=== PATIENT | female | born 1945 | race African-American/Black ===

== ENCOUNTER 2018-11-13 14:51 | Inpatient (IN) | payer MEDICARE, MEDICAID ==
[2018-11-13] MEDS ORDERED: LIDOCAINE 1%/EPINEPHRINE INJ 20 ML VIAL INJ ONE (15:45)
--- NOTE | 2018-11-13 15:49 | ER Document Report ---
ED Fall - General Chief Complaint: Fall Injury Stated Complaint: FALL Time Seen by Provider: 11/13/18 15:23 Primary Care Provider: SAMIA SILVERIO MD [NO LOCAL MD] - Follow up as needed Information source: Patient, Relative Notes: Patient presents today after getting her shoe caught on a rug at [employer] and falling injuring her face on pavement. There was no loss of consciousness no nausea or vomiting. Patient with laceration to upper lip and inside her mouth. Patient with significant swelling to the lower lip. Patient states that she has felt weak for some time and did fall 5 days ago at home. Patient states she feels like her extremities do not want to move properly. Patient does have a history of hypertension and hypothyroidism. Patient has not been on any medications since her primary doctor had stopped practicing. Patient has not been on medications for almost a year. Patient denies any chest pain shortness of breath or headache at this time. TRAVEL OUTSIDE OF THE [place] IN LAST 30 DAYS: No - HPI Occurred: Just prior to arrival Where: Public place Context: Tripped Associated symptoms: None Location of injury/pain: Face Quality of pain: Achy Pain Level: 2 - Related data Allergies/Adverse Reactions: No Known Allergies Allergy (Verified 11/13/18 14:55) Past Medical History - General Information source: Patient, Relative - Social History Smoking Status: Never Smoker Chew tobacco use (# tins/day): No Frequency of alcohol use: None Drug Abuse: None Lives with: Family Family History: Reviewed & Not Pertinent Patient has suicidal ideation: No Patient has homicidal ideation: No - Past Medical History Cardiac Medical History: Reports: Hx Hypercholesterolemia, Hx Hypertension Endocrine Medical History: Reports: Hx Hypothyroidism Past Surgical History: Reports: Hx Appendectomy, Hx Section, Hx Hysterectomy Review of Systems - Review of Systems Constitutional: Weakness EENT: Other - mouth injury Cardiovascular: No symptoms reported. denies: Chest pain, Dizziness Respiratory: No symptoms reported. denies: Cough, Short of breath Gastrointestinal: No symptoms reported - Arm. denies: Abdominal pain, Nausea, Vomiting Genitourinary: No symptoms reported Female Genitourinary: No symptoms reported Musculoskeletal: Joint pain - left hand. denies: Back pain Skin: Other - lac to lip and inside mouth Hematologic/Lymphatic: No symptoms reported Neurological/Psychological: Weakness, Gait changes. denies: Lost consciousness Physical Exam - Vital signs Vitals: Temp Pulse Resp BP Pulse Ox 97.5 F 110 H 15 186/100 H 95 11/13/18 15:01 11/13/18 15:01 11/13/18 15:01 11/13/18 15:01 11/13/18 15:01 - General General appearance: Appears well, Alert In distress: None - HEENT Head: Ecchymosis - lower lip, Tenderness - mouth. No: Abrasions, [place]'s eyes Eyes: Normal Conjunctiva: Normal Extraocular movements intact: Yes Eyelashes: Normal Pupils: PERRL Ears: Normal External canal: Normal Tympanic membrane: Normal. No: Hemotympanum Nasal: Normal. No: Septal hematoma Mouth/Lips: Laceration - 1 cm laceration to the area just superior of right side of upper lip, Other - Irregular laceration to inside oral cavity near the upper frenulum Swelling, contusion left side of lower lip Mucous membranes: Normal Neck: Normal, Supple, Other - No cervical midline tenderness step-off or deformity. No: Lymphadenopathy - Respiratory Respiratory status: No respiratory distress Chest status: Nontender Breath sounds: Normal. No: Rales, Rhonchi, Stridor, Wheezing Chest palpation: Normal. No: Tender, Ecchymosis - Cardiovascular Rhythm: Tachycardia Heart sounds: S1 appreciated, S2 appreciated Murmur: No - Abdominal Inspection: Normal Distension: No distension Bowel sounds: Normal Tenderness: Nontender Organomegaly: No organomegaly - Back Back: Normal, Nontender. No: Deformity/step-off, Vertebra tenderness - Extremities General upper extremity: Normal strength General lower extremity: Normal inspection, Normal strength Shoulder: Normal, Nontender Arm: Normal, Nontender Elbow: Normal, Nontender Forearm: Normal, Nontender Wrist: Normal, Nontender Hand: Tender - left hand tenderness Hip: Normal, Nontender Thigh: Normal, Nontender Knee: Normal, Nontender Calf: Normal, Nontender Ankle: Normal, Nontender Foot: Normal, Nontender - Neurological Neuro grossly intact: Yes Cognition: Normal [place]on Coma Scale Eye Opening: Spontaneous Jensen Coma Scale Verbal: Oriented [place]on Coma Scale Motor: Obeys Commands Weston Coma Scale Total: 15 - Psychological Associated symptoms: Normal affect, Normal mood - Skin Skin Temperature: Warm Skin Moisture: Dry Skin Color: Normal Skin irregularity: Laceration - 1 cm lac to area superior of right side of upper lip Course - Re-evaluation Re-evalutation: 11/13/18 18:[address] Mercedes regarding patient presentation and diagnostic evaluation. Recommends consultation with hospitalist for admission. Spoke with Dr. Torres who is not taking any additional admissions at this time on the day shift. Dr. Torres graciously gave recommendations regarding treatment of patient's hypothyroidism at this time. Agrees with plan for admission and recom mends treatment with 175 or 200 mcg of levothyroxine 2 hours ago at this time. 11/13/18 19:41 Called and spoke with Dr. Stone to give report on patient that he has graciously accepted for admission. - Vital Signs Vital signs: Temp Pulse Resp BP Pulse Ox 97.5 F 110 H 15 186/100 H 99 11/13/18 15:01 11/13/18 15:01 11/13/18 15:01 11/13/18 15:01 11/13/18 15:43 - Laboratory Result Diagrams: 11/13/18 16:40 11/13/18 16:40 Laboratory results interpreted by me: 11/13/18 11/13/18 11/13/18 16:40 16:40 16:40 Hgb 10.4 L Hct 30.5 L RDW 17.2 H Potassium 3.2 L Chloride 97 L Carbon Dioxide 33 H Creatinine 1.52 H Est GFR ( Amer) 40 L Est GFR (MDRD) Non-Af 33 L AST 59 H TSH 56.90 H Free T4 0.07 L Free T3 pg/mL 0.66 L Labs- Entire Visit 11/13/18 11/13/18 11/13/18 16:40 16:40 16:40 WBC 5.0 RBC 3.77 Hgb 10.4 L Hct 30.5 L MCV 81 MCH 27.7 MCHC 34.1 RDW 17.2 H Plt Count 211 Lymph % (Auto) 32.0 [place] % (Auto) 5.6 Eos % (Auto) 0.3 Baso % (Auto) 0.9 Reticulocyte # Absolute Neuts (auto) 3.1 Absolute Lymphs (auto) 1.6 Absolute Monos (auto) 0.3 Absolute Eos (auto) 0.0 Absolute Basos (auto) 0.0 Seg Neutrophils % 61.2 Retic Count (auto) Sodium 139.2 Potassium 3.2 L Chloride 97 L Carbon Dioxide 33 H Anion Gap 9 BUN 20 Creatinine 1.52 H Est GFR ( Amer) 40 L Est GFR (MDRD) Non-Af 33 L Glucose 89 Calcium 9.6 Magnesium Total Bilirubin 0.6 Direct Bilirubin 0.2 Neonat Total Bilirubin Not Reportable Neonat Direct Bilirubin Not Reportable Neonat Indirect Bili Not Reportable AST 59 H ALT 24 Alkaline Phosphatase 51 Troponin I 0.028 Total Protein 8.0 Albumin 4.6 TSH Free T4 Free T3 pg/mL Urine Color Urine Appearance Urine pH Ur Specific [place] Urine Protein Urine Glucose (UA) Urine Ketones Urine Blood Urine Nitrite Urine Bilirubin Urine Urobilinogen Ur Leukocyte Esterase Urine WBC (Auto) Urine RBC (Auto) Urine Bacteria (Auto) Squamous Epi Cells Auto Urine Ascorbic Acid 11/13/18 11/13/18 11/13/18 16:40 16:40 16:40 WBC RBC Hgb Hct MCV MCH MCHC RDW Plt Count Lymph % (Auto) [place] % (Auto) Eos % (Auto) Baso % (Auto) Reticulocyte # 0.034 Absolute Neuts (auto) Absolute Lymphs (auto) Absolute Monos (auto) Absolute Eos (auto) Absolute Basos (auto) Seg Neutrophils % Retic Count (auto) 0.92 Sodium Potassium Chloride Carbon Dioxide Anion Gap BUN Creatinine Est GFR ( Amer) Est GFR (MDRD) Non-Af Glucose Calcium Magnesium 2.0 Total Bilirubin Direct Bilirubin Neonat Total Bilirubin Neonat Direct Bilirubin Neonat Indirect Bili AST ALT Alkaline Phosphatase Troponin I Total Protein Albumin TSH 56.90 H Free T4 0.07 L Free T3 pg/mL 0.66 L Urine Color Urine Appearance Urine pH Ur Specific [place] Urine Protein Urine Glucose (UA) Urine Ketones Urine Blood Urine Nitrite Urine Bilirubin Urine Urobilinogen Ur Leukocyte Esterase Urine WBC (Auto) Urine RBC (Auto) Urine Bacteria (Auto) Squamous Epi Cells Auto Urine Ascorbic Acid 11/13/18 17:24 WBC RBC Hgb Hct MCV MCH MCHC RDW Plt Count Lymph % (Auto) [place] % (Auto) Eos % (Auto) Baso % (Auto) Reticulocyte # Absolute Neuts (auto) Absolute Lymphs (auto) Absolute Monos (auto) Absolute Eos (auto) Absolute Basos (auto) Seg Neutrophils % Retic Count (auto) Sodium Potassium Chloride Carbon Dioxide Anion Gap BUN Creatinine Est GFR ( Amer) Est GFR (MDRD) Non-Af Glucose Calcium Magnesium Total Bilirubin Direct Bilirubin Neonat Total Bilirubin Neonat Direct Bilirubin Neonat Indirect Bili AST ALT Alkaline Phosphatase Troponin I Total Protein Albumin TSH Free T4 Free T3 pg/mL Urine Color COLORLESS Urine Appearance CLEAR Urine pH 8.0 Ur Specific [place] 1.005 Urine Protein NEGATIVE Urine Glucose (UA) NEGATIVE Urine Ketones NEGATIVE Urine Blood NEGATIVE Urine Nitrite NEGATIVE Urine Bilirubin NEGATIVE Urine Urobilinogen NEGATIVE Ur Leukocyte Esterase NEGATIVE Urine WBC (Auto) 1 Urine RBC (Auto) 1 Urine Bacteria (Auto) TRACE Squamous Epi Cells Auto <1 Urine Ascorbic Acid NEGATIVE - Diagnostic Test Radiology reviewed: Reports reviewed - EKG Interpretation by De EKG shows normal: Sinus rhythm Voltage: Increased voltage, Consistant with LVH Additional EKG results interpreted by me: 11/13/18 16:57 QTc 465 Procedures - Laceration/Wound Repair Face Wound length (cm): 1 Wound's Depth, Shape: Irregular Anesthetic type: 1% Lidocaine w/epi Wound explored: Clean Wound Repaired With: Sutures Suture Size/Type: 6:0, Ethilon Number of Sutures: 3 Layer Closure?: No Post-procedure NV exam normal: Yes Complications: No Adult Head Front/Back picture: 1 - lac Mid- Face Wound length (cm): 2 Wound's Depth, Shape: Irregular Anesthetic type: 1% Lidocaine w/epi Wound Debrided: Minimal Wound Repaired With: Sutures Suture Size/Type: Vicryl, 4:0 Number of Sutures: 3 Mouth/Teeth picture: 1 - lac Discharge - Discharge Clinical Impression: Weakness Laceration of oral cavity Qualifiers: Encounter type: initial encounter Qualified Code(s): S01.512A - Laceration without foreign body of oral cavity, initial encounter Facial laceration Qualifiers: Encounter type: initial encounter Qualified Code(s): S01.81XA - Laceration without foreign body of other part of head, initial encounter Falls Qualifiers: Encounter type: initial encounter Qualified Code(s): W19.XXXA - Unspecified fall, initial encounter Hypothyroid Qualifiers: Hypothyroidism type: unspecified Qualified Code(s): E03.9 - Hypothyroidism, unspecified Facial contusion Qualifiers: Encounter type: initial encounter Qualified Code(s): S00.83XA - Contusion of other part of head, initial encounter Condition: Fair Disposition: ADMITTED INPATIENT Admitting Provider: Chase (Hospitalist) Unit Admitted: [facility]U Referrals: SAMIA SILVERIO MD [NO LOCAL MD] - Follow up as needed
[2018-11-13] MEDS: DIPH/PERTUSS(ACELL)/TETANUS VAC/PF 0.5 ML SYR (>=10YO) IM ONE ×2 (16:36→16:39)
--- NOTE | 2018-11-13 16:46 | RADIOLOGY REPORT (SQ) ---
EXAM DESCRIPTION: CT HEAD WITHOUT COMPLETED DATE/TIME: 11/13/2018 4:19 pm REASON FOR STUDY: fall, facial injury COMPARISON: None. TECHNIQUE: Axial images acquired through the brain without intravenous contrast. Images reviewed wit h bone, brain and subdural windows. Images stored on PACS. All CT scanners at this facility use dose modulation, iterative reconstruction, and/or weight based d osing when appropriate to reduce radiation dose to as low as reasonably achievable (ALARA). [facility]: Dose Right [facility]: CareDose [facility]: Dose Right [facility]: Teradose 4D [facility]: Smart CHARMS [facility] RADIATION DOSE: CT Rad equipment meets quality standard of care and radiation dose reduction techniq ues were employed. CTDIvol: 53.2 mGy. DLP: 911 mGy-cm.. LIMITATIONS: None. FINDINGS: VENTRICLES: Normal size and contour. CEREBRUM: No masses. No hemorrhage. No midline shift. Age appropriate white matter. No evidence for a cute infarction. CEREBELLUM: No masses. No hemorrhage. No alteration of density. No evidence for acute infarction. EXTRA-AXIAL SPACES: No fluid collections. ORBITS AND GLOBE: No intra- or extraconal masses. Normal contour of globe without masses. CALVARIUM: No fracture. PARANASAL SINUSES: No fluid or mucosal thickening. SOFT TISSUES: No mass or hematoma. OTHER: No other significant finding. IMPRESSION: NO ACUTE INTRACRANIAL FINDINGS. EVIDENCE OF ACUTE STROKE: NO. TECHNICAL DOCUMENTATION: JOB ID: [id number] [place]-72 Quality ID # [id number]: Final reports with documentation of one or more dose reduction techniques (e.g., Au tomated exposure control, adjustment of the mA and/or kV according to patient size, use of iterative reconstruction technique) 2010 [employer]- All Rights Reserved Reading location - IP/workstation name: [email or web address]
--- NOTE | 2018-11-13 16:50 | RADIOLOGY REPORT (SQ) ---
EXAM DESCRIPTION: CT CERVICAL SPINE WITHOUT COMPLETED DATE/TIME: 11/13/2018 4:19 pm REASON FOR STUDY: fall, facial injury COMPARISON: None. TECHNIQUE: Axial images acquired through the cervical spine without intravenous contrast. Images re viewed with lung, soft tissue and bone windows. Reconstructed coronal and sagittal MPR images review ed. Images stored on PACS. All CT scanners at this facility use dose modulation, iterative reconstruction, and/or weight based d osing when appropriate to reduce radiation dose to as low as reasonably achievable (ALARA). [facility]: Dose Right [facility]: CareDose [facility]: Dose Right [facility]: Teradose 4D [facility]: Smart [employer] RADIATION DOSE: CT Rad equipment meets quality standard of care and radiation dose reduction techniq ues were employed. CTDIvol: 15.8 mGy. DLP: 312 mGy-cm. mGy. LIMITATIONS: None. FINDINGS: ALIGNMENT: Anatomic. MINERALIZATION: Normal. VERTEBRAL BODIES: No fractures or dislocation. DISCS: Multilevel disc space narrowing with osteophytes. FACETS, LATERAL MASSES, POSTERIOR ELEMENTS: Facet arthropathy. No fractures. No dislocation. No ac stacey findings. HARDWARE: None in the spine. VISUALIZED RIBS: No fractures. LUNG APICES AND SOFT TISSUES: No significant or acute findings. OTHER: No other significant finding. IMPRESSION: CHRONIC DEGENERATIVE CHANGES. NO ACUTE FINDINGS. TECHNICAL DOCUMENTATION: JOB ID: [id number] [place]-72 Quality ID # [id number]: Final reports with documentation of one or more dose reduction techniques (e.g., Au tomated exposure control, adjustment of the mA and/or kV according to patient size, use of iterative reconstruction technique) 2010 [employer]- All Rights Reserved Reading location - IP/workstation name: [email or web address]
--- NOTE | 2018-11-13 16:53 | RADIOLOGY REPORT (SQ) ---
EXAM DESCRIPTION: CT FACIAL AREA WITHOUT COMPLETED DATE/TIME: 11/13/2018 4:19 pm REASON FOR STUDY: fall, facial injury COMPARISON: None. TECHNIQUE: Noncontrasted images through the facial bones and orbits windowed for bone and soft tissu e. Additional coronal and sagittal reconstructed images reviewed. All images stored on PACS. All CT scanners at this facility use dose modulation, iterative reconstruction, and/or weight based d osing when appropriate to reduce radiation dose to as low as reasonably achievable (ALARA). [facility]: Dose Right [facility]: CareDose [facility]: Dose Right [facility]: Teradose 4D [facility]: [employer] RADIATION DOSE: CT Rad equipment meets quality standard of care and radiation dose reduction techniq ues were employed. CTDIvol: 30.4 mGy. DLP: 657 mGy-cm. mGy. LIMITATIONS: None. FINDINGS: FACIAL BONES: No fracture or bone lesion. ORBITS: Intact. No fracture. Symmetric intact globes and retroorbital soft tissues. PARANASAL SINUSES: Clear. No significant mucosal thickening, mass or fluid. No nasal polyps. Maxill simi sinus outlets are patent. SOFT TISSUES: No mass or edema. INFERIOR BRAIN: Limited view. No acute findings. OTHER: No other significant finding. IMPRESSION: NO ACUTE FINDINGS. TECHNICAL DOCUMENTATION: JOB ID: [id number] [place]-72 Quality ID # [id number]: Final reports with documentation of one or more dose reduction techniques (e.g., Au tomated exposure control, adjustment of the mA and/or kV according to patient size, use of iterative reconstruction technique) 2010 [employer]- All Rights Reserved Reading location - IP/workstation name: [email or web address]
--- NOTE | 2018-11-13 16:59 | RADIOLOGY REPORT (SQ) ---
EXAM DESCRIPTION: HAND LEFT 3 VIEWS COMPLETED DATE/TIME: 11/13/2018 4:29 pm REASON FOR STUDY: fall, L hand pain COMPARISON: None. EXAM PARAMETERS: NUMBER OF VIEWS: Three views. TECHNIQUE: AP, lateral and oblique radiographic images acquired of the left hand. LIMITATIONS: None. FINDINGS: MINERALIZATION: Osteopenia. BONES: No acute fracture or dislocation. No worrisome bone lesions. JOINTS: No effusion. SOFT TISSUES: No significant soft tissue swelling. No radiopaque foreign body. OTHER: No other significant finding. IMPRESSION: NO FRACTURE. TECHNICAL DOCUMENTATION: JOB ID: [id number] [place]-72 2010 [email or web address]- All Rights Reserved Reading location - IP/workstation name: [employer]
[2018-11-13 17:00] LABS: ABSOLUTE LYMPHOCYTES (AUTO) 1.6 10^3/uL (0.5-4.7); ABSOLUTE MONOCYTES (AUTO) 0.3 10^3/uL (0.1-1.4); ABSOLUTE NEUT (AUTO) 3.1 10^3/uL (1.7-8.2); BASOPHILS % (AUTO) 0.9 % (0-2); EOSINOPHILS % (AUTO) 0.3 % (0-6); HEMATOCRIT 30.5 % (36.0-47.0); HEMOGLOBIN 10.4 g/dL (12.0-15.5); MEAN CORPUSCULAR HEMOGLOBIN 27.7 pg (27.0-33.4); MEAN CORPUSCULAR HGB CONC 34.1 g/dL (32.0-36.0); MEAN CORPUSCULAR VOLUME 81 fl (80-97); MONOCYTES % (AUTO) 5.6 % (3-13); PLATELET COUNT 211 10^3/uL (150-450); RED BLOOD COUNT 3.77 10^6/uL (3.72-5.28); RED CELL DISTRIBUTION WIDTH 17.2 % (11.5-14.0); SEGMENTED NEUTROPHILS % (AUTO) 61.2 % (42-78); TOTAL CELLS COUNTED % (AUTO) 100 %
--- NOTE | 2018-11-13 17:02 | RADIOLOGY REPORT (SQ) ---
EXAM DESCRIPTION: CHEST 2 VIEWS COMPLETED DATE/TIME: 11/13/2018 4:29 pm REASON FOR STUDY: weak, fall COMPARISON: None. TECHNIQUE: Frontal and lateral radiographic views of the chest acquired. NUMBER OF VIEWS: Two view. LIMITATIONS: None. FINDINGS: LUNGS AND PLEURA: No pneumothorax. No consolidation or pleural effusion. MEDIASTINUM AND HILAR STRUCTURES: Age-appropriate contour. HEART AND VASCULAR STRUCTURES: Moderate cardiomegaly. BONES: No acute findings. HARDWARE: None in the chest. OTHER: No other significant finding. IMPRESSION: Moderate cardiomegaly. No consolidation or pleural effusion. TECHNICAL DOCUMENTATION: JOB ID: [id number] [place]-72 2010 [employer]- All Rights Reserved Reading location - IP/workstation name: [employer]
[2018-11-13] MEDS ORDERED: VALSARTAN 160 MG TABLET PO ONE (17:15)
[2018-11-13 17:16] LABS: ALBUMIN 4.6 g/dL (3.5-5.0); ALKALINE PHOSPHATASE 51 U/L (38-126); ANION GAP 9 (5-19); ASPARTATE AMINO TRANSFERASE 59 U/L (14-36); BILIRUBIN,DIRECT 0.2 mg/dL (0.0-0.4); BILIRUBIN,TOTAL 0.6 mg/dL (0.2-1.3); BLOOD UREA NITROGEN 20 mg/dL (7-20); CALCIUM 9.6 mg/dL (8.4-10.2); CARBON DIOXIDE 33 mmol/L (22-30); CHLORIDE 97 mmol/L (98-107); GLUCOSE 89 mg/dL (75-110); POTASSIUM 3.2 mmol/L (3.6-5.0)
[2018-11-13] MEDS ORDERED: HYDROCHLOROTHIAZIDE 25 MG TABLET PO ONE (17:16)
[2018-11-13] MEDS ORDERED: POTASSIUM CHLORIDE 10 MEQ CAPSULE.ER PO ONE (17:43)
[2018-11-13 17:53] LABS: APPEARANCE,URINE CLEAR; BILIRUBIN,URINE NEGATIVE (NEGATIVE); COLOR,URINE COLORLESS; GLUCOSE, URINE NEGATIVE (NEGATIVE); KETONES,URINE NEGATIVE (NEGATIVE); LEUKOCYTE ESTERASE,URINE NEGATIVE (NEGATIVE); NITRITE,URINE NEGATIVE (NEGATIVE); PROTEIN,URINE NEGATIVE (NEGATIVE); UROBILINOGEN,URINE NEGATIVE mg/dL (<2.0)
[2018-11-13 17:54] LABS: URINE SPECIFIC GRAVITY 1.005
[2018-11-13 18:22] LABS: FREE T3 0.66 pg/mL (2.77-5.27); FREE T4 (FREE THYROXINE) 0.07 ng/dL (0.78-2.19)
[2018-11-13 18:35] LABS: THYROID STIMULATING HORMONE 56.9 uIU/mL (0.47-4.68)
[2018-11-13] MEDS ORDERED: LEVOTHYROXINE SODIUM 0.075 MG TABLET PO ONE (18:45)
[2018-11-13] MEDS ORDERED: LEVOTHYROXINE SODIUM 0.1 MG TABLET PO ONE (18:45)
[2018-11-13] MEDS ORDERED: CEPHALEXIN 500 MG CAPSULE PO ONE (18:54)
[2018-11-13] MEDS ORDERED: ACETAMINOPHEN 325 MG TABLET PO PRN (18:59)
[2018-11-13] MEDS ORDERED: MAG HYDROX/AL HYDROX/SIMETH SUSP 30 ML UDCUP PO PRN (18:59)
[2018-11-13] MEDS ORDERED: IPRATROPIUM/ALBUTEROL 0.5-2.5 MG/3 ML AMPUL NEB PRN (18:59)
[2018-11-13] MEDS ORDERED: MAGNESIUM HYDROXIDE SUSP 30 ML UDCUP PO PRN (18:59)
[2018-11-13 19:13] LABS: ABSOLUTE RETICS # 0.034 10^6/uL (0.028-0.122); RETICULOCYTE COUNT (AUTO) 0.92 % (0.66-2.85)
[2018-11-13] MEDS ORDERED: METHYLPREDNISOLONE INJ 125 MG/2 ML SDV ONE (19:17)
--- NOTE | 2018-11-13 19:27 | EKG REPORT ---
SEVERITY:- ABNORMAL ECG - SINUS RHYTHM PROBABLE LVH WITH SECONDARY REPOL ABNRM CONSIDER ANTERIOR INFARCT : Confirmed by: Raven Combs MD 13-Nov-2018 19:26:08
[2018-11-13] MEDS ORDERED: METHYLPREDNISOLONE INJ 125 MG/2 ML SDV IV ONE (19:30)
[2018-11-13] MEDS: HYDRALAZINE HCL INJ/PF 20 MG/1 ML SDV IV PRN (22:22)
[2018-11-13] MEDS: HEPARIN SOD (PORCINE) 5,000 UNIT/ML 1 ML VIAL SUBCUT SCH (23:07)
[2018-11-14] MEDS: HEPARIN SOD (PORCINE) 5,000 UNIT/ML 1 ML VIAL SUBCUT SCH ×3 (05:39→22:19)
[2018-11-14] MEDS: MAGNESIUM SULFATE/D5W 1 GM/100 ML RTUPB IV SCH ×2 (05:40→06:55)
[2018-11-14] MEDS: METHYLPREDNISOLONE INJ 125 MG/2 ML SDV IV SCH ×3 (05:40→22:20)
--- NOTE | 2018-11-14 05:54 | PDOC H&P ---
History of Present Illness Admission Date/PCP: 11/13/18 20:05 Patient complains of: Fall with injury History of Present Illness: PENNY FRAZIER is a 73 year old female with a past medical history of hypertension, hypothyroidism and dyslipidemia. She presents after tripping on a rug falling onto her face witnessed by at bedside. There is no loss of consciousness or seizure activity. The patient had no preceding palpitations, chest pain, shortness of breath dizziness, headache blurred vision but has complained of multiple recent falls. She denies recent change of medications but has been off medications for proximally 1 year. In the emergency room she has extensive swelling to the face with laceration of the left upper lip requiring sutures. Hypokalemia, hypothyroidism, anemia, acute renal failure and referred to the hospitalist for admission. Patient complains of generalized dry, pruritic skin. Past Medical History Cardiac Medical History: Reports: Hyperlipidema, Hypertension Endocrine Medical History: Reports: Hypothyroidism Past Surgical History Past Surgical History: Reports: Appendectomy, Section, Hysterectomy Social History Information Source: Patient, Relative Lives with: Family Smoking Status: Never Smoker Frequency of Alcohol Use: None Hx Recreational Drug Use: No Drugs: None Hx Prescription Drug Abuse: No - Advance Directive Resuscitation Status: Full Code Family History Family History: Hypertension Parental Family History Reviewed: Yes Children Family History Reviewed: Yes Sibling(s) Family History Reviewed.: Yes Medication/Allergy Allergies/Adverse Reactions: No Known Allergies Allergy (Verified 11/13/18 14:55) Review of Systems Constitutional: PRESENT: as per HPI, fatigue, weakness, weight gain. ABSENT: fever(s), headache(s), night sweats Eyes: ABSENT: visual disturbances Ears: ABSENT: hearing changes Cardiovascular: ABSENT: chest pain, dyspnea on exertion, edema, orthropnea, pa lpitations Respiratory: ABSENT: cough, hemoptysis Gastrointestinal: PRESENT: constipation. ABSENT: abdominal pain, diarrhea, hematemesis, hematochezia, nausea, vomiting Genitourinary: ABSENT: dysuria, hematuria Musculoskeletal: PRESENT: as per HPI, muscle weakness. ABSENT: deformity, joint swelling Integumentary: PRESENT: as per HPI, pruritus, other - Dry skin. ABSENT: rash, wounds Neurological: ABSENT: abnormal gait, abnormal speech, confusion, dizziness, focal weakness, syncope Psychiatric: ABSENT: anxiety, depression, homidical ideation, suicidal ideation Endocrine: PRESENT: as per HPI, cold intolerance. ABSENT: heat intolerance, polydipsia, polyuria Hematologic/Lymphatic: ABSENT: easy bleeding, easy bruising Physical Exam Vital Signs: Temp Pulse Resp BP Pulse Ox 98.0 F 90 18 160/96 H 99 11/14/18 04:07 11/14/18 04:07 11/14/18 04:07 11/14/18 04:07 11/14/18 04:07 Intake & Output 11/12/18 11/13/18 11/14/18 11:59 11:59 11:59 Output Total 0 Balance 0 Weight 55.2 kg General appearance: PRESENT: cooperative, mild distress, well-developed, well- nourished Head exam: ABSENT: atraumatic Head Image: 1 - 6 x 6 cm multicolored ecchymosis without swelling 2 - posttraumatic hematoma of the left upper and lower lip. Eye exam: PRESENT: conjunctiva pink, EOMI, PERRLA. ABSENT: scleral icterus Ear exam: PRESENT: normal external ear exam Mouth exam: PRESENT: moist, tongue midline Neck exam: ABSENT: carotid bruit, JVD, lymphadenopathy, thyromegaly Respiratory exam: PRESENT: clear to auscultation bertin. ABSENT: rales, rhonchi, wheezes Cardiovascular exam: PRESENT: RRR. ABSENT: diastolic murmur, rubs, systolic murmur Pulses: PRESENT: normal dorsalis pedis pul Vascular exam: PRESENT: normal capillary refill GI/Abdominal exam: PRESENT: normal bowel sounds, soft. ABSENT: distended, guarding, mass, organolmegaly, rebound, tenderness Rectal exam: PRESENT: deferred Extremities exam: PRESENT: full ROM. ABSENT: calf tenderness, clubbing, pedal edema Neurological exam: PRESENT: alert, awake, oriented to person, oriented to place, oriented to time, oriented to situation, CN II-XII grossly intact. ABSENT: motor sensory deficit Psychiatric exam: PRESENT: appropriate affect, normal mood. ABSENT: homicidal ideation, suicidal ideation Skin exam: PRESENT: abrasion, dry, erythema, pallor. ABSENT: petechiae, skin tears Results Laboratory Results: 11/13/18 16:40 11/13/18 16:40 11/13/18 11/13/18 11/13/18 16:40 16:40 16:40 WBC 5.0 RBC 3.77 Hgb 10.4 L Hct 30.5 L MCV 81 MCH 27.7 MCHC 34.1 RDW 17.2 H Plt Count 211 Seg Neutrophils % 61.2 Retic Count (auto) Sodium 139.2 Potassium 3.2 L Chloride 97 L Carbon Dioxide 33 H Anion Gap 9 BUN 20 Creatinine 1.52 H Est GFR ( Amer) 40 L Glucose 89 Calcium 9.6 Magnesium 2.0 Iron TIBC % Saturation Ferritin Total Bilirubin 0.6 AST 59 H Alkaline Phosphatase 51 Total Protein 8.0 Albumin 4.6 Vitamin B12 Folate TSH Free T4 Free T3 pg/mL Urine Color Urine Appearance Urine pH Ur Specific [place] Urine Protein Urine Glucose (UA) Urine Ketones Urine Blood Urine Nitrite Ur Leukocyte Esterase Urine WBC (Auto) Urine RBC (Auto) 11/13/18 11/13/18 11/13/18 16:40 16:40 16:40 WBC RBC Hgb Hct MCV MCH MCHC RDW Plt Count Seg Neutrophils % Retic Count (auto) 0.92 Sodium Potassium Chloride Carbon Dioxide Anion Gap BUN Creatinine Est GFR ( Amer) Glucose Calcium Magnesium Iron 61.0 TIBC 282 % Saturation 22 Ferritin 386.00 H Total Bilirubin AST Alkaline Phosphatase Total Protein Albumin Vitamin B12 653.0 Folate 10.90 TSH 56.90 H Free T4 0.07 L Free T3 pg/mL 0.66 L Urine Color Urine Appearance Urine pH Ur Specific [place] Urine Protein Urine Glucose (UA) Urine Ketones Urine Blood Urine Nitrite Ur Leukocyte Esterase Urine WBC (Auto) Urine RBC (Auto) 11/13/18 11/13/18 17:24 19:27 WBC RBC Hgb Hct MCV MCH MCHC RDW Plt Count Seg Neutrophils % Retic Count (auto) Sodium Potassium Chloride Carbon Dioxide Anion Gap BUN Creatinine Est GFR ( Amer) Glucose Calcium Magnesium 1.3 L Iron TIBC % Saturation Ferritin Total Bilirubin AST Alkaline Phosphatase Total Protein Albumin Vitamin B12 Folate TSH Free T4 Free T3 pg/mL Urine Color COLORLESS Urine Appearance CLEAR Urine pH 8.0 Ur Specific [place] 1.005 Urine Protein NEGATIVE Urine Glucose (UA) NEGATIVE Urine Ketones NEGATIVE Urine Blood NEGATIVE Urine Nitrite NEGATIVE Ur Leukocyte Esterase NEGATIVE Urine WBC (Auto) 1 Urine RBC (Auto) 1 11/13/18 16:40 Troponin I 0.028 Impressions: Cervical Spine CT 11/13/18 15:44 IMPRESSION: CHRONIC DEGENERATIVE CHANGES. NO ACUTE FINDINGS. Chest X-Ray 11/13/18 15:44 IMPRESSION: Moderate cardiomegaly. No consolidation or pleural effusion. Facial Bones CT 11/13/18 15:44 IMPRESSION: NO ACUTE FINDINGS. Head CT 11/13/18 15:44 IMPRESSION: NO ACUTE INTRACRANIAL FINDINGS. EVIDENCE OF ACUTE STROKE: NO. Hand X-Ray 11/13/18 15:48 IMPRESSION: NO FRACTURE. Assessment and Plan - Diagnosis (1) Weakness Is this a current diagnosis for this admission?: Yes Plan: Multifactorial secondary to generalized atrophy, hypo-kalemia, anemia and h ypothyroidism resulting in falls. Electrolyte repletion, stress dose steroids, Synthroid and physical therapy. (2) Hypokalemia Is this a current diagnosis for this admission?: Yes Plan: Repletion of both potassium and magnesium. Follow-up chemistry (3) Hypomagnesemia Is this a current diagnosis for this admission?: Yes Plan: Repletion of magnesium, follow-up chemistry (4) Anemia Is this a current diagnosis for this admission?: Yes Plan: Follow-up anemia work-up (5) Facial contusion Qualifiers: Encounter type: initial encounter Qualified Code(s): S00.83XA - Contusion of other part of head, initial encounter Is this a current diagnosis for this admission?: Yes Plan: Secondary to #1, symptomatic management and prevention. (6) Facial laceration Qualifiers: Encounter type: initial encounter Qualified Code(s): S01.81XA - Laceration without foreign body of other part of head, initial encounter Is this a current diagnosis for this admission?: Yes Plan: Symptomatic management, suture removal 5 to 7 days (7) Hypothyroid Qualifiers: Hypothyroidism type: unspecified Qualified Code(s): E03.9 - Hypothyroidism, unspecified Is this a current diagnosis for this admission?: Yes Plan: Stress dose steroids x72 hours with the initiation of Synthroid, titrate to optimal dose with follow-up of TSH every 6 weeks (8) Laceration of oral cavity Qualifiers: Encounter type: initial encounter Qualified Code(s): S01.512A - Laceration without foreign body of oral cavity, initial encounter Is this a current diagnosis for this admission?: Yes Plan: Oral hygiene - Time Time Spent with patient: 25-34 minutes - Inpatient Certification Medical Necessity: Need Close Monitoring Due to Risk of Patient Decompensation
[2018-11-14 06:03] LABS: ABSOLUTE LYMPHOCYTES (AUTO) 0.7 10^3/uL (0.5-4.7); ABSOLUTE MONOCYTES (AUTO) 0.1 10^3/uL (0.1-1.4); ABSOLUTE NEUT (AUTO) 4.5 10^3/uL (1.7-8.2); BASOPHILS % (AUTO) 0.2 % (0-2); HEMATOCRIT 32.4 % (36.0-47.0); HEMOGLOBIN 11.1 g/dL (12.0-15.5); MEAN CORPUSCULAR HEMOGLOBIN 27.7 pg (27.0-33.4); MEAN CORPUSCULAR HGB CONC 34.2 g/dL (32.0-36.0); MEAN CORPUSCULAR VOLUME 81 fl (80-97); MONOCYTES % (AUTO) 1.5 % (3-13); PLATELET COUNT 196 10^3/uL (150-450); SEGMENTED NEUTROPHILS % (AUTO) 85.3 % (42-78); TOTAL CELLS COUNTED % (AUTO) 100 %; WHITE BLOOD COUNT 5.2 10^3/uL (4.0-10.5)
[2018-11-14 06:21] LABS: TRIGLYCERIDES 183 mg/dL (<150)
[2018-11-14 06:22] LABS: ANION GAP 14 (5-19); BLOOD UREA NITROGEN 20 mg/dL (7-20); CARBON DIOXIDE 27 mmol/L (22-30); CHLORIDE 99 mmol/L (98-107); GLUCOSE 126 mg/dL (75-110); POTASSIUM 3.6 mmol/L (3.6-5.0)
[2018-11-14 06:32] LABS: DIRECT LDL 162 mg/dL (<100)
[2018-11-14 06:33] LABS: CHOLESTEROL 491.21 mg/dL (0-200); VLDL CHOLESTEROL 36.6 mg/dL (10-31)
[2018-11-14] MEDS ORDERED: MAGNESIUM SULFATE/D5W 1 GM/100 ML RTUPB IV SCH (09:00)
[2018-11-14] MEDS: POTASSIUM CHLORIDE 10 MEQ CAPSULE.ER PO SCH ×2 (10:13→22:20)
[2018-11-14] MEDS: DOCUSATE SODIUM 100 MG CAPSULE PO SCH ×2 (10:14→17:25)
[2018-11-14] MEDS: MAGNESIUM OXIDE 400 MG TABLET PO SCH ×2 (10:14→17:25)
[2018-11-14] MEDS: LEVOTHYROXINE SODIUM 0.15 MG TABLET PO SCH (10:14)
[2018-11-14] MEDS: NYSTATIN/DEXAMETH/DIPHEN SUSP 120 ML PO SCH ×4 (11:30→22:29)
--- NOTE | 2018-11-14 11:44 | PDOC PROGRESS REPORT ---
Subjective Progress Note for:: 11/14/18 Subjective:: This is a 73 year old female with a past medical history of hypertension, hypothyroidism and dyslipidemia who presented with increasing weakness and fall. She was noted to have severe hypothyroidism. She admits to having stopped taking her Synthroid for the past 3 months now. No acute event overnight. This morning, she expressed that she wants to go home now. She denies acute complaints. Discussed in length that she is having significant symptoms from her severe hypothyroidism and I would recommend for her to continue treatment inpatient in the next 24 to 48 hours. She has not been started on Synthroid. We will restart her on Synthroid at a higher dose today. Will repeat thyroid panel tomorrow. Reason For Visit: HYPOTHYROID,ARF,HYPOKALEMIA,FALLS Physical Exam Vital Signs: Temp Pulse Resp BP Pulse Ox 98.0 F 81 18 160/96 H 99 11/14/18 04:07 11/14/18 07:00 11/14/18 04:07 11/14/18 04:07 11/14/18 04:07 Intake & Output 11/13/18 11/14/18 11/15/18 06:59 06:59 06:59 Intake Total 100 100 Output Total 0 Balance 100 100 Weight 112 lb 14.027 oz General appearance: PRESENT: no acute distress, well-developed, well-nourished Head exam: PRESENT: other - Sutured lip laceration Eye exam: PRESENT: conjunctiva pink, EOMI, PERRLA. ABSENT: scleral icterus Ear exam: PRESENT: normal external ear exam Mouth exam: PRESENT: moist, tongue midline Neck exam: ABSENT: carotid bruit, JVD, lymphadenopathy, thyromegaly Respiratory exam: PRESENT: clear to auscultation bertin. ABSENT: rales, rhonchi, wheezes Cardiovascular exam: PRESENT: RRR. ABSENT: diastolic murmur, rubs, systolic murmur Pulses: PRESENT: normal dorsalis pedis pul GI/Abdominal exam: PRESENT: normal bowel sounds, soft. ABSENT: distended, guarding, mass, organolmegaly, rebound, tenderness Rectal exam: PRESENT: deferred Extremities exam: PRESENT: full ROM. ABSENT: calf tenderness, clubbing, pedal edema Neurological exam: PRESENT: alert, awake, oriented to person, oriented to place, oriented to time, oriented to situation, CN II-XII grossly intact. ABSENT: motor sensory deficit Results Laboratory Results: 11/14/18 05:49 11/14/18 05:49 11/13/18 11/13/18 11/13/18 16:40 16:40 16:40 WBC 5.0 RBC 3.77 Hgb 10.4 L Hct 30.5 L MCV 81 MCH 27.7 MCHC 34.1 RDW 17.2 H Plt Count 211 Seg Neutrophils % 61.2 Retic Count (auto) Sodium 139.2 Potassium 3.2 L Chloride 97 L Carbon Dioxide 33 H Anion Gap 9 BUN 20 Creatinine 1.52 H Est GFR ( Amer) 40 L Glucose 89 Calcium 9.6 Magnesium 2.0 Iron TIBC % Saturation Ferritin Total Bilirubin 0.6 AST 59 H Alkaline Phosphatase 51 Total Protein 8.0 Albumin 4.6 Triglycerides Cholesterol LDL Cholesterol Direct VLDL Cholesterol HDL Cholesterol Vitamin B12 Folate TSH Free T4 Free T3 pg/mL Urine Color Urine Appearance Urine pH Ur Specific [place] Urine Protein Urine Glucose (UA) Urine Ketones Urine Blood Urine Nitrite Ur Leukocyte Esterase Urine WBC (Auto) Urine RBC (Auto) 11/13/18 11/13/18 11/13/18 16:40 16:40 16:40 WBC RBC Hgb Hct MCV MCH MCHC RDW Plt Count Seg Neutrophils % Retic Count (auto) 0.92 Sodium Potassium Chloride Carbon Dioxide Anion Gap BUN Creatinine Est GFR ( Amer) Glucose Calcium Magnesium Iron 61.0 TIBC 282 % Saturation 22 Ferritin 386.00 H Total Bilirubin AST Alkaline Phosphatase Total Protein Albumin Triglycerides Cholesterol LDL Cholesterol Direct VLDL Cholesterol HDL Cholesterol Vitamin B12 653.0 Folate 10.90 TSH 56.90 H Free T4 0.07 L Free T3 pg/mL 0.66 L Urine Color Urine Appearance Urine pH Ur Specific [place] Urine Protein Urine Glucose (UA) Urine Ketones Urine Blood Urine Nitrite Ur Leukocyte Esterase Urine WBC (Auto) Urine RBC (Auto) 11/13/18 11/13/18 11/14/18 17:24 19:27 05:49 WBC 5.2 RBC 4.00 Hgb 11.1 L Hct 32.4 L MCV 81 MCH 27.7 MCHC 34.2 RDW 17.0 H Plt Count 196 Seg Neutrophils % 85.3 H Retic Count (auto) Sodium Potassium Chloride Carbon Dioxide Anion Gap BUN Creatinine Est GFR ( Amer) Glucose Calcium Magnesium 1.3 L Iron TIBC % Saturation Ferritin Total Bilirubin AST Alkaline Phosphatase Total Protein Albumin Triglycerides Cholesterol LDL Cholesterol Direct VLDL Cholesterol HDL Cholesterol Vitamin B12 Folate TSH Free T4 Free T3 pg/mL Urine Color COLORLESS Urine Appearance CLEAR Urine pH 8.0 Ur Specific [place] 1.005 Urine Protein NEGATIVE Urine Glucose (UA) NEGATIVE Urine Ketones NEGATIVE Urine Blood NEGATIVE Urine Nitrite NEGATIVE Ur Leukocyte Esterase NEGATIVE Urine WBC (Auto) 1 Urine RBC (Auto) 1 11/14/18 11/14/18 11/14/18 05:49 05:49 05:49 WBC RBC Hgb Hct MCV MCH MCHC RDW Plt Count Seg Neutrophils % Retic Count (auto) Sodium 139.6 Potassium 3.6 Chloride 99 Carbon Dioxide 27 Anion Gap 14 BUN 20 Creatinine 1.41 H Est GFR ( Amer) 44 L Glucose 126 H Calcium 10.0 Magnesium 2.1 Iron TIBC % Saturation Ferritin Total Bilirubin AST Alkaline Phosphatase Total Protein Albumin Triglycerides 183 H Cholesterol 491.21 H LDL Cholesterol Direct 162 H VLDL Cholesterol 36.6 H HDL Cholesterol 91 Vitamin B12 Folate TSH Free T4 Free T3 pg/mL Urine Color Urine Appearance Urine pH Ur Specific [place] Urine Protein Urine Glucose (UA) Urine Ketones Urine Blood Urine Nitrite Ur Leukocyte Esterase Urine WBC (Auto) Urine RBC (Auto) 11/13/18 16:40 Troponin I 0.028 Impressions: Cervical Spine CT 11/13/18 15:44 IMPRESSION: CHRONIC DEGENERATIVE CHANGES. NO ACUTE FINDINGS. Chest X-Ray 11/13/18 15:44 IMPRESSION: Moderate cardiomegaly. No consolidation or pleural effusion. Facial Bones CT 11/13/18 15:44 IMPRESSION: NO ACUTE FINDINGS. Head CT 11/13/18 15:44 IMPRESSION: NO ACUTE INTRACRANIAL FINDINGS. EVIDENCE OF ACUTE STROKE: NO. Hand X-Ray 11/13/18 15:48 IMPRESSION: NO FRACTURE. Assessment and Plan - Diagnosis (1) Severe hypothyroidism Is this a current diagnosis for this admission?: Yes Plan: We will restart her on Synthroid at 150 mcg daily. Repeat thyroid panel tomorrow. (2) Falls Qualifiers: Encounter type: initial encounter Qualified Code(s): W19.XXXA - Unspecified fall, initial encounter Is this a current diagnosis for this admission?: Yes Plan: Trauma work-up was negative. Fall was secondary to severe hypothyroidism. (3) HTN (hypertension) Is this a current diagnosis for this admission?: Yes Plan: We will start patient on amlodipine (4) Hyperlipidemia Is this a current diagnosis for this admission?: Yes Plan: We will start patient on atorvastatin. (5) Hypokalemia Is this a current diagnosis for this admission?: Yes Plan: Repleted. (6) Hypomagnesemia Is this a current diagnosis for this admission?: Yes Plan: Repleted. (7) Elevated serum creatinine Is this a current diagnosis for this admission?: Yes Plan: No baseline creatinine. Unsure if this is LEXY on top of CKD. BUN is normal. She may have underlying CKD. Will repeat BMP tomorrow. - Time Time Spent with patient: 25-34 minutes
[2018-11-14] MEDS ORDERED: AMLODIPINE BESYLATE 5 MG TABLET PO SCH (12:00)
[2018-11-14] MEDS: HYDRALAZINE HCL INJ/PF 20 MG/1 ML SDV IV PRN (20:50)
[2018-11-14] MEDS ORDERED: ATORVASTATIN CALCIUM 20 MG TABLET PO SCH (22:00)
[2018-11-15] MEDS: HEPARIN SOD (PORCINE) 5,000 UNIT/ML 1 ML VIAL SUBCUT SCH (05:37)
[2018-11-15 05:55] LABS: FREE T3 0.81 pg/mL (2.77-5.27); FREE T4 (FREE THYROXINE) 0.31 ng/dL (0.78-2.19)
[2018-11-15 06:08] LABS: THYROID STIMULATING HORMONE 36.5 uIU/mL (0.47-4.68)
[2018-11-15] MEDS: LEVOTHYROXINE SODIUM 0.15 MG TABLET PO SCH (06:08)
[2018-11-15] MEDS: METHYLPREDNISOLONE INJ 125 MG/2 ML SDV IV SCH (06:08)
[2018-11-15 08:32] VITALS: BP 158/89
--- NOTE | 2018-11-15 09:09 | Progress Note Acknowledgement ---
Progress Note Acknowledgement Progess Note Acknowledgement: I, the undersigned member of the medical staff with appropriate privileges and with supervisory authority over [Tuan Kapadia], a dependent practice allied health professional, acknowledge that I have reviewed the progress notes entered on this patient, and in my professional judgment believe that the assessment made and/or any care evidenced was appropriate
--- NOTE | 2018-11-15 09:16 | PDOC DISCHARGE SUMMARY ---
General - Admit/Disc Date/PCP Admission Date/Primary Care Provider: 11/13/18 20:05 Discharge Date: 11/15/18 - Discharge Diagnosis (1) Severe hypothyroidism Is this a current diagnosis for this admission?: Yes (2) Falls Is this a current diagnosis for this admission?: Yes (3) HTN (hypertension) Is this a current diagnosis for this admission?: Yes (4) Hyperlipidemia Is this a current diagnosis for this admission?: Yes (5) Hypokalemia Is this a current diagnosis for this admission?: Yes (6) Hypomagnesemia Is this a current diagnosis for this admission?: Yes (7) Elevated serum creatinine Is this a current diagnosis for this admission?: Yes - Additional Information Resuscitation Status: Full Code Discharge Diet: As Tolerated Discharge Activity: Activity As Tolerated Prescriptions: Atorvastatin Calcium [Lipitor 20 mg Tablet] 20 mg PO QHS #30 tablet Amlodipine Besylate [Norvasc 5 mg Tablet] 5 mg PO DAILY #30 tablet Levothyroxine Sodium [Synthroid 0.15 mg Tablet] 0.15 mg PO Q6AM #90 tablet Home Medications: Amlodipine Besylate [Norvasc 5 mg Tablet] 5 mg PO DAILY #30 tablet 11/15/18 Atorvastatin Calcium [Lipitor 20 mg Tablet] 20 mg PO QHS #30 tablet 11/15/18 Levothyroxine Sodium [Synthroid 0.15 mg Tablet] 0.15 mg PO Q6AM #90 tablet 11/15/18 History of Present Illness Patient complains of: None this a.m. History of Present Illness: PENNY FRAZIER is a 73 year old female who presented on 11/14/2018 with weakness and a fall. Hospital Course Hospital Course: Patient is 33-year-old female with past medical history hypertension, hypothyroidism and dyslipidemia who presented with increasing weakness and fall. She has been noted to have severe hypothyroidism in the past and stopped taking her Synthroid for the past 3 months now. Patient is very anxious about going home at this time as she "needs to make her lite payment". Patient has Shay been established with a primary care physician follow-up on patient's needs. Patient will need a repeat TSH T4 in 2 to 3 months. All her labs have normalized other than her creatinine which seems to be chronic in nature. At this time I feel appropriate to send patient home she will follow-up with primary care in 1 week. Physical Exam Vital Signs: Temp Pulse Resp BP Pulse Ox 97.4 F 84 16 158/89 H 100 11/15/18 08:01 11/15/18 08:01 11/15/18 08:01 11/15/18 08:01 11/15/18 08:01 Intake & Output 11/14/18 11/15/18 11/16/18 06:59 06:59 06:59 Intake Total 100 820 Output Total 0 200 Balance 100 620 Weight 51.2 kg 52.8 kg General appearance: PRESENT: no acute distress, well-developed, well-nourished Head exam: PRESENT: atraumatic, normocephalic Mouth exam: PRESENT: other - Swollen upper and lower lips secondary to fall laceration to the top of the upper lip Teeth exam: PRESENT: poor dentation Neck exam: ABSENT: carotid bruit, JVD, lymphadenopathy, thyromegaly Respiratory exam: PRESENT: clear to auscultation bertin. ABSENT: rales, rhonchi, wheezes Cardiovascular exam: PRESENT: RRR. ABSENT: diastolic murmur, rubs, systolic murmur Pulses: PRESENT: +1 pedal pulses bilateral GI/Abdominal exam: PRESENT: normal bowel sounds, soft. ABSENT: distended, guarding, mass, organolmegaly, rebound, tenderness Extremities exam: PRESENT: full ROM. ABSENT: calf tenderness, clubbing, pedal edema Neurological exam: PRESENT: alert, awake, oriented to person, oriented to place, oriented to time, oriented to situation, CN II-XII grossly intact. ABSENT: mot or sensory deficit Psychiatric exam: PRESENT: appropriate affect, normal mood. ABSENT: homicidal ideation, suicidal ideation Skin exam: PRESENT: other - Upper lip laceration Results Laboratory Results: 11/14/18 05:49 11/14/18 05:49 11/15/18 04:38 TSH 36.50 H Free T4 0.31 L Free T3 pg/mL 0.81 L 11/13/18 16:40 Troponin I 0.028 Impressions: Cervical Spine CT 11/13/18 15:44 IMPRESSION: CHRONIC DEGENERATIVE CHANGES. NO ACUTE FINDINGS. Chest X-Ray 11/13/18 15:44 IMPRESSION: Moderate cardiomegaly. No consolidation or pleural effusion. Facial Bones CT 11/13/18 15:44 IMPRESSION: NO ACUTE FINDINGS. Head CT 11/13/18 15:44 IMPRESSION: NO ACUTE INTRACRANIAL FINDINGS. EVIDENCE OF ACUTE STROKE: NO. Hand X-Ray 11/13/18 15:48 IMPRESSION: NO FRACTURE. Qualifiers - * PATIENT BEING DISCHARGED WITH ANY OF THE FOLLOWING DIAGNOSIS: No Acute Heart Failure - Is this a Heart Failure Patient?: No Plan Time Spent: Greater than 30 Minutes
== END 2018-11-15 10:20 | disposition home or self-care (01) | DRG 644 ==
LOC: ER 14:51 → EH 20:05 → 3W 22:45
PROVIDERS: ADMIT Internal Medicine; ATTEND Internal Medicine
PROC: 0CQ0XZZ Repair Upper Lip, External Approach (ICD-10-PCS; principal; 2018-11-13)
DX: E03.9 Hypothyroidism, unspecified (principal); N17.9 Acute kidney failure, unspecified; E83.42 Hypomagnesemia; D64.9 Anemia, unspecified; E78.5 Hyperlipidemia, unspecified; E87.6 Hypokalemia; S00.83XA Contusion of other part of head, initial encounter; I10 Essential (primary) hypertension; R94.4 Abnormal results of kidney function studies; R53.1 Weakness; S01.511A Laceration without foreign body of lip, initial encounter; W01.0XXA Fall on same level from slipping, tripping and stumbling without subsequent striking against object, initial encounter; Y92.22 Religious institution as the place of occurrence of the external cause; Z82.49 Family history of ischemic heart disease and other diseases of the circulatory system
CPT/HCPCS: 36415; 70450; 70486; 71046; 72125; 80048; 80053; 80061; 81001; 82607; 82728; 82746; 83540; 83550; 83735; 84439; 84443; 84481; 84484; 85025; 85045; 90715; 93005; 93010; 96374; 99285; J0360; J1644; J2930; J3475; J3490

== ENCOUNTER 2018-11-18 11:04 | Emergency (ER) | payer MEDICARE, MEDICAID ==
[2018-11-18 11:16] VITALS: BP 146/92
--- NOTE | 2018-11-18 11:42 | ER Document Report ---
HPI - HPI Time Seen by Provider: 11/18/18 11:22 Pain Level: Denies Context: Patient is a 73-year-old female who presents to the emergency department to have her sutures removed. Her sutures were placed 5 days ago after a fall. She was admitted to the hospital at that time. She has no other complaints and states that she is hungry wants to go eat. - ROS Systems Reviewed and Negative: Yes All other systems reviewed and negative - CONSTITUTIONAL Constitutional: DENIES: Fever, Chills - EENT EENT: DENIES: Sore Throat - DERM Skin Color: Normal Skin Problems: Laceration - healed with [address] to right upper lip line Past Medical History - Social History Smoking Status: Unknown if Ever Smoked Family History: Hypertension - Past Medical History Cardiac Medical History: Reports: Hx Hypercholesterolemia, Hx Hypertension Endocrine Medical History: Reports: Hx Hypothyroidism Past Surgical History: Reports: Hx Appendectomy, Hx Section, Hx Hysterectomy Vertical Provider Document - CONSTITUTIONAL Agree With Documented VS: Yes Exam Limitations: No Limitations General Appearance: No Apparent Distress - INFECTION CONTROL TRAVEL OUTSIDE OF THE [place] IN LAST 30 DAYS: No - HEENT HEENT: negative: Atraumatic - ecchymosis to right side of face from fall - MUSCULOSKELETAL/EXTREMETIES Musculoskeletal/Extremeties: FROM - NEURO Level of Consciousness: Awake, Alert, Appropriate - DERM Integumentary: Warm, Dry, No Rash, Laceration - healed to right upper lip with 3 sutures Course - Re-evaluation Re-evalutation: 11/18/18 11:50 3 sutures were removed by myself. Patient tolerated the procedure well. No infection noted. No cellulitis. She has a follow-up appointment with her primary care provider already from her hospital visit. Follow-up precautions were given. Verbal discharge instructions were given to the patient. They verbalized understanding. They are stable for discharge. - Vital Signs Vital signs: Temp Pulse Resp BP Pulse Ox 97.6 F 92 20 146/92 H 100 11/18/18 11:06 11/18/18 11:06 11/18/18 11:06 11/18/18 11:06 11/18/18 11:06 Discharge - Discharge Clinical Impression: Visit for suture removal Condition: Stable Disposition: HOME, SELF-CARE Additional Instructions: You were seen today in the emergency department for suture removal. Your sutures were removed here in the emergency department. The site was healing well. If you notice any redness, draining pus, or any other symptoms, please see your primary care.
== END 2018-11-18 12:02 | disposition home or self-care (01) ==
LOC: ER 11:04
DX: S01.511D Laceration without foreign body of lip, subsequent encounter (principal); X58.XXXD Exposure to other specified factors, subsequent encounter
CPT/HCPCS: 99281